=== PATIENT | male | born 1975 | race Caucasian/White ===

== ENCOUNTER 2017-07-22 23:16 | Emergency (ER) | payer BC ==
[2017-07-22] MEDS ORDERED: Iopamidol 612 MG/ML 100 ML Bottle IVPUSH ONE (23:24)
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
[2017-07-22 23:50] LABS: CHLORIDE,CL 98 mmol/L (101-111); SODIUM,NA 129 mmol/L (135-145)
[2017-07-23] MEDS ORDERED: Bacitracin Oint 1 GM U/D Packet TOP ONE (00:15)
[2017-07-23] MEDS ORDERED: Lidocaine 1% 30 ML SDV INJECT ONE (00:15)
[2017-07-23] MEDS ORDERED: Cephalexin 500 MG Cap PO ONE (01:34)
[2017-07-23] MEDS ORDERED: Acetaminophen/HYDROcodone 325-10 MG Tab PO ONE (01:34)
== END 2017-07-23 02:11 | disposition home or self-care (01) ==
LOC: DL.ED 23:16
DX: S01.81XA Laceration without foreign body of other part of head, initial encounter (principal); S01.21XA Laceration without foreign body of nose, initial encounter; Y90.8 Blood alcohol level of 240 mg/100 ml or more; V87.7XXA Person injured in collision between other specified motor vehicles (traffic), initial encounter
CPT/HCPCS: 12014; 36415; 70450; 70486; 71260; 72125; 74177; 80053; 80305; 81001; 85025; 85610; 85730; 86850; 86900; 86901; 99285; A9270; G0480; Q9967

== ENCOUNTER 2019-05-07 15:59 | Emergency (ER) | payer BC, OTHER ==
[2019-05-07 18:12] LABS: ANION GAP 15.6 mEq/L (7-13); CHLORIDE,CL 94 mmol/L (98-107); SODIUM,NA 131 mmol/L (136-145)
--- NOTE | 2019-05-07 19:07 | EDM.PDOC ---
ED HPI GENERAL MEDICAL PROBLEM - General Chief Complaint: ENT Problem Stated Complaint: PUKING BLOOD, NOSE BLEED. Time Seen by Provider: 05/07/19 19:03 Source of Information: Reports: Patient, Family History Limitations: Reports: No Limitations - History of Present Illness INITIAL COMMENTS - FREE TEXT/NARRATIVE: pt has no c/o presently states bleeding had already stopped but got concerned since he vomited blood x1 but none since being here. Past Medical History - Past Health History Medical/Surgical History: Denies Medical/Surgical History HEENT History: Reports: Epistaxis Other HEENT History: nose fracture - Past Surgical History HEENT Surgical History: Reports: None Social & Family History - Family History Family Medical History: Noncontributory - Tobacco Use Smoking Status *Q: Current Some Day Smoker Years of Tobacco use: 15 Packs/Tins Daily: 0.5 Used Tobacco, but Quit: No - Caffeine Use Caffeine Use: Reports: None, Coffee - Alcohol Use Days Per Week of Alcohol Use: 5 Number of Drinks Per Day: 2 Total Drinks Per Week: 10 - Recreational Drug Use Recreational Drug Use: No ED ROS ENT - Review of Systems Review Of Systems: Comprehensive ROS is negative, except as noted in HPI. ED EXAM, ENT - Physical Exam Exam: See Below Exam Limited By: No Limitations General Appearance: Alert, WD/WN, No Apparent Distress Ears: Hearing Grossly Normal Nose: Normal Inspection, Normal Mucousa. No: Active Bleeding, Dried Blood Mouth/Throat: Normal Inspection Head: Atraumatic Neck: Non-Tender, Full Range of Motion Respiratory/Chest: No Respiratory Distress Cardiovascular: Regular Rate, Rhythm GI/Abdominal: Soft, Non-Tender Neurological: Alert, Oriented, Normal Cognition, Normal Gait, No Motor/Sensory Deficits Psychiatric: Normal Affect, Normal Mood Skin: Warm, Dry, Normal Color Lymphatic: No Adenopathy Course - Vital Signs Last Recorded V/S: Last Vital Signs Temp 36.6 C 05/07/19 17:04 Pulse 70 05/07/19 17:04 Resp 18 05/07/19 17:04 BP 124/88 05/07/19 17:04 Pulse Ox 98 05/07/19 17:04 - Orders/Labs/Meds Labs: Laboratory Tests 05/07/19 05/07/19 Range/Units 17:17 17:17 WBC 5.1 (5.0-10.0) 10^3/uL RBC 4.82 (4.6-6.2) 10^6/uL Hgb 15.1 (14.0-18.0) g/dL Hct 42.6 (40.0-54.0) % MCV 88.4 (80-100) fL MCH 31.3 (27.0-34.0) pg MCHC 35.4 H (33.0-35.0) g/dL Plt Count 178 (150-450) 10^3/uL Neut % (Auto) 61.5 (42.2-75.2) % Lymph % (Auto) 29.9 (20.5-50.1) % Clay % (Auto) 7.2 (2-8) % Eos % (Auto) 1.0 (1.0-3.0) % Baso % (Auto) 0.4 (0.0-1.0) % Sodium 131 L (136-145) mmol/L Potassium 4.6 (3.5-5.1) mmol/L Chloride 94 L (98-107) mmol/L Carbon Dioxide 26 (21-32) mmol/L Anion Gap 15.6 H (7-13) mEq/L BUN 7 (7-18) mg/dL Creatinine 0.50 L (0.70-1.30) mg/dL Est Cr Clr Drug Dosing 193.86 mL/min Estimated GFR (MDRD) > 60 BUN/Creatinine Ratio 14.0 (No establ ref range) Glucose 75 (74-99) mg/dL Calcium 7.9 L (8.5-10.1) mg/dL Total Bilirubin 0.3 (0.2-1.0) mg/dL AST 44 H (15-37) U/L ALT 73 H (16-63) U/L Alkaline Phosphatase 67 (46-116) U/L Total Protein 7.4 (6.4-8.2) g/dL Albumin 4.4 (3.4-5.0) g/dL Globulin 3.0 Albumin/Globulin Ratio 1.5 Ethyl Alcohol 230 (0) mg/dL - Re-Assessments/Exams Free Text/Narrative Re-Assessment/Exam: 05/07/19 19:05 results discussed with pt who feels fine without further bleeding since being here. Departure - Departure Time of Disposition: 19:05 Disposition: Home, Self-Care 01 Condition: Good Clinical Impression: Epistaxis - Discharge Information Instructions: Nosebleed, [id number] Additional Instructions: 1) avoid excess nose blowing 2) don't pick nose 3) try applying neosporin oint or vaseline to inside of nostril 4) recheck as needed Sepsis Event Note - Evaluation Sepsis Screening Result: No Definite Risk - Focused Exam Vital Signs: Vital Signs Temp Pulse Resp BP Pulse Ox 05/07/19 17:04 36.6 C 70 18 124/88 98 Date Exam was Performed: 05/07/19 Time Exam was Performed: 19:03
== END 2019-05-07 19:16 | disposition home or self-care (01) ==
LOC: DL.ED 15:59
DX: R04.0 Epistaxis (principal); F17.210 Nicotine dependence, cigarettes, uncomplicated
CPT/HCPCS: 36415; 80053; 80307; 85025; 99283